=== PATIENT | female | born 1955 ===

== ENCOUNTER 2017-11-26 21:49 | Emergency (ER) | payer MEDICAID, OTHER ==
[2017-11-26 21:49] VITALS: BMI 34.0
[2017-11-26 22:24] VITALS: TEMP 97.8; O2SAT 96
--- NOTE | 2017-11-26 22:41 | C.PDOC ---
History Of Present Illness Pt is here because she has a little intermittent twitching around her left eye earlier tonight that resolved spontaneously. She states she felt the twitching afte she noticed that her friend's face was twitching. Time Seen by Provider: 11/26/17 22:29 Chief Complaint (Nursing): Medical Clearance History Per: Patient, [employer] History/Exam Limitations: language barrier Onset/Duration Of Symptoms: Other (tonight) Current Symptoms Are (Timing): Gone Severity: Mild Location: Left face Quality: Twitching Additional History Per: Prior Records Past Medical History Reviewed: Historical Data, Nursing Documentation, Vital Signs Vital Signs: Last Vital Signs Temp 97.8 F 11/26/17 22:19 Pulse 90 11/26/17 22:19 Resp 14 11/26/17 22:19 BP 148/82 11/26/17 22:19 Pulse Ox 96 11/26/17 22:19 - Medical History PMH: Anxiety, Bipolar Disorder, Depression, Fractures, HTN, Hypercholesterolemia , Schizophrenia, Sleep Apnea, TIA Surgical History: Appendectomy - [facility] Procedures ENDOSC POLYPECTOMY OF LG INTEST (05/02/14) GROUP PSYCHOTHERAPY (11/08/17) INDIVIDUAL PSYCHOTHERAPY, COGNITIVE-BEHAVIORAL (11/08/17) Family History: States: Unknown Family Hx - Social History Hx Tobacco Use: No Hx Alcohol Use: No Hx Substance Use: No - Immunization History Hx Tetanus Toxoid Vaccination: No Hx Influenza Vaccination: Yes Hx Pneumococcal Vaccination: No Review Of Systems Except As Marked, All Systems Reviewed And Found Negative. Constitutional: Negative for: Fever, Weakness Eyes: Negative for: Pain, Vision Change Cardiovascular: Negative for: Chest Pain Respiratory: Negative for: Shortness of Breath Gastrointestinal: Negative for: Vomiting, Abdominal Pain Musculoskeletal: Negative for: Neck Pain Skin: Negative for: Rash Neurological: Negative for: Weakness, Numbness, Seizures, Altered Mental Status , Headache Physical Exam - Physical Exam Appears: Non-toxic, No Acute Distress Skin: Normal Color, Warm, Dry, No Rash Head: Atraumatic, Normacephalic Eye(s): bilateral: Normal Inspection, PERRL, EOMI Neck: Normal ROM, Supple Cardiovascular: Rhythm Regular Respiratory: Normal Breath Sounds, No Accessory Muscle Use Gastrointestinal/Abdominal: Soft, No Tenderness Extremity: Normal ROM Neurological/Psych: Oriented x3, Normal Speech, Normal Cognition, Normal Cranial Nerves, No Cerebellar Signs, Normal Motor, Normal Sensation ED Course And Treatment O2 Sat by Pulse Oximetry: 96 Pulse Ox Interpretation: Normal Disposition Counseled Patient/Family Regarding: Diagnosis, Need For Followup - Disposition Referrals: Anselmo Jasso MD [Staff Provider] - Disposition: HOME/ ROUTINE Disposition Time: 22:43 Condition: STABLE Additional Instructions: Follow up with your doctor. Return to the ER if you develop weakness, numbness, twitching that does not resolve spontaneously, worsening of symptoms or if you have any other concerns. Forms: [employer] ([place]), General Discharge Instructions - Clinical Impression Clinical Impression: Facial twitching
[2017-11-26 22:42] VITALS: BP 140/72; PULSE 84; RESP 20
== END 2017-11-26 22:51 | disposition home or self-care (01) ==
LOC: C.ER 21:49
DX: R25.3 Fasciculation (principal); E78.00 Pure hypercholesterolemia, unspecified; I10 Essential (primary) hypertension; Z86.73 Personal history of transient ischemic attack (TIA), and cerebral infarction without residual deficits